=== PATIENT | male | born 1965 | race African-American/Black ===

== ENCOUNTER 2016-07-12 18:56 | Emergency (ER) | payer BC ==
[2016-07-12 15:35] LABS: BASOPHILS 0.4 %; BASOPHILS ABSOLUTE 0.03 10/3/uL (0.0-0.16); ER CBC TAT 0 Hrs 07 Mins; HEMATOCRIT 39.4 % (40.0-51.0); HEMOGLOBIN 13.6 g/dL (13.6-17.8); LYMPHOCYTES 28.9 %; LYMPHOCYTES ABSOLUTE 2.19 10/3/uL (0.67-4.30); MANUAL DIFF NO %; MEAN CORPUS HGB CONC 34.5 g/dL (32.0-36.0); MEAN CORPUSCULAR HEMOGLOB 29.7 pg (26.0-34.0); MEAN PLATELET VOLUME 10.2 fL (9.2-13.0); MONOCYTES 9.6 %; MONOCYTES ABSOLUTE 0.73 10/3/uL (0.21-1.20); NEUTROPHILS 57.1 %; NEUTROPHILS ABSOLUTE 4.32 10/3/uL (2.02-8.40); PLATELET COUNT 229 10/3/uL (150-400); RBC DISTRIBUTION WIDTH 13.3 % (12.0-16.0); RED CELL COUNT 4.58 10/6/uL (4.7-6.1); WHITE BLOOD CELLS 7.6 10/3/uL (4.5-10.5)
[2016-07-12 15:46] LABS: PARTIAL THROMBO TIME 27.3 SEC (22.5-37.2); PROTIME (NOT ORD) 13.1 SEC (12.0-14.5)
[2016-07-12 15:50] LABS: BUN (BLOOD UREA NITROGEN) 7 MG/DL (6-23); CALCIUM, SERUM 9.7 MG/DL (8.5-10.4); CHEST PAIN PROFILE TAT 0 Hrs 22 Mins; CHLORIDE, SERUM 101 MMOL/L (96-112); CO2 (CARBON DIOXIDE) 34 MMOL/L (24-34); CREATININE 0.87 MG/DL (0.70-1.30); GFR AFRICAN AMERICAN 115 ML/MIN (>=60); GFR NON AFRICAN AMERICAN 99 ML/MIN (>=60); GLUCOSE, SERUM 182 MG/DL (60-99); POTASSIUM, SERUM 3.9 MMOL/L (3.5-5.3); SODIUM, SERUM 137 MMOL/L (135-148); TROPONIN I <0.02 NG/ML (<0.05)
[2016-07-12 17:52] LABS: D-DIMER QUANTITATIVE < 0.27 ug/mLFEU (< 0.50)
[~2016-07-12 18:56] MED LIST: AMB10 PO; ASAB PO; ATIVAN2 MG PO; ATV1 PO; CEFT5 PO; FLEX PO; GLUCPH PO; HYDROCHLOROT25 MG PO; KLOR-CON 1010 MEQ PO; LYRICA300 MG PO; LYRICA75 PO; M-END WC OR; MIRALAXPKT PO; NORV5 PO; OXYCONTIN30 MG PO; PERCOCET1 TA4 PO; PRILO PO; ROXICODONE15 MG PO; SINGULAIR1 PO; ZOCOR10 PO; ZYRTEC ALLGY10 MG PO
== END 2016-07-12 19:35 | disposition home or self-care (01) ==
LOC: ER 18:56
PROVIDERS: Emergency Medicine
DX: J40 Bronchitis, not specified as acute or chronic (principal); H10.9 Unspecified conjunctivitis; I10 Essential (primary) hypertension; F41.9 Anxiety disorder, unspecified; E11.9 Type 2 diabetes mellitus without complications; Z79.82 Long term (current) use of aspirin; Z79.899 Other long term (current) drug therapy
CPT/HCPCS: 71020; 80048; 83735; 84484; 85025; 85379; 85610; 85730; 93005; 94640; 99285; A9270-GY

== ENCOUNTER 2016-07-13 23:25 | Emergency (ER) | payer BC ==
[2016-07-13 23:55] LABS: BASOPHILS 0.3 %; BASOPHILS ABSOLUTE 0.03 10/3/uL (0.0-0.16); EOSINOPHILS 1.4 %; EOSINOPHILS ABSOLUTE 0.16 10/3/uL (0.0-0.53); HEMATOCRIT 39.6 % (40.0-51.0); HEMOGLOBIN 13.8 g/dL (13.6-17.8); IMMATURE GRANULOCYTES 0.3 %; IMMATURE GRANULOCYTES ABSOLUTE 0.04 10/3/uL (0.0-0.11); LYMPHOCYTES 19.8 %; LYMPHOCYTES ABSOLUTE 2.35 10/3/uL (0.67-4.30); MEAN CORPUS HGB CONC 34.8 g/dL (32.0-36.0); MEAN CORPUSCULAR VOLUME 86.1 fL (80-100); MONOCYTES 5.7 %; MONOCYTES ABSOLUTE 0.68 10/3/uL (0.21-1.20); NEUTROPHILS 72.5 %; NEUTROPHILS ABSOLUTE 8.59 10/3/uL (2.02-8.40); PLATELET COUNT 228 10/3/uL (150-400); RBC DISTRIBUTION WIDTH 13.4 % (12.0-16.0)
[2016-07-14 00:04] LABS: ER CBC TAT 0 Hrs 15 Mins; MANUAL DIFF NO %; WHITE BLOOD CELLS 11.9 10/3/uL (4.5-10.5)
[2016-07-14 00:36] LABS: A/G RATIO 1.3 (0.7-1.9); ALBUMIN 4.2 G/DL (3.5-5.0); ALKALINE PHOSPHATASE 91 U/L (45-117); BUN (BLOOD UREA NITROGEN) 13 MG/DL (6-23); CALCIUM, SERUM 9.5 MG/DL (8.5-10.4); CHLORIDE, SERUM 102 MMOL/L (96-112); CO2 (CARBON DIOXIDE) 30 MMOL/L (24-34); CREATININE 1.18 MG/DL (0.70-1.30); GFR AFRICAN AMERICAN 82 ML/MIN (>=60); GFR NON AFRICAN AMERICAN 71 ML/MIN (>=60); GLOBULIN 3.2 G/DL (2.5-4.1); GLUCOSE, SERUM 222 MG/DL (60-99); POTASSIUM, SERUM 3.5 MMOL/L (3.5-5.3); SGOT(AST) 11 U/L (5-40); SGPT(ALT) 22 U/L (5-65); SODIUM, SERUM 140 MMOL/L (135-148); TOTAL BILIRUBIN 0.5 MG/DL (0-1.2); TOTAL PROTEIN 7.4 G/DL (6.0-8.5)
[2016-07-14 03:47] LABS: ALLENS TEST Pos; BE (BASE EXCESS) -2.5 MEQ/L (0 +/- 2.5); CARBOXYHEMOGLOBIN 1.2 % (0-3); HEMOBLOGIN CONTENT 14.5 G/DL (14-18); INSTRUMENT SERIAL # 8087; METHEMOGLOBIN 0.3 % (0-3); O2 CONTENT 19.2 VOL% (18-24); OPERATOR ID 17589; PCO2 (CO2 TENSION) 37 MMHG (35-45); PO2 (O2 TENSION) 83 MMHG (79-93); SAMPLE Arterial; pH 7.39 (7.37-7.43)
== END 2016-07-14 05:30 | disposition home or self-care (01) ==
LOC: ER 23:25
PROVIDERS: Emergency Medicine; Nurse Practitioner
DX: J44.1 Chronic obstructive pulmonary disease with (acute) exacerbation (principal); E11.65 Type 2 diabetes mellitus with hyperglycemia; J45.909 Unspecified asthma, uncomplicated; I10 Essential (primary) hypertension; E78.5 Hyperlipidemia, unspecified; F41.9 Anxiety disorder, unspecified; G89.29 Other chronic pain; Z79.82 Long term (current) use of aspirin; Z90.49 Acquired absence of other specified parts of digestive tract; Z98.890 Other specified postprocedural states
CPT/HCPCS: 36600; 71020; 80053; 82805; 84484; 85025; 85379; 87040; 93005; 94640; 96374; 99285; J2930

== ENCOUNTER 2016-07-21 02:25 | Observation (INO) | payer BC ==
--- NOTE | ~2016-07-21 | DS ---
Discharge Summary [id number] [place]. [address] NAME: JAMES HERRERA : 61 STATUS : DIS Hannah PAT#: [id number] AGE: 50 ADM/REG DATE : 07/21/16 MR#: [id number] REPORT SERV DATE: 07/26/16 DICTATED BY: AGUSTINA HATFIELD DATE: 07/22/16 REPORT STATUS : Draft TRANSCRIBED BY: MODL DATE: 07/22/16 ADMISSION DATE: 07/21/2016 DISCHARGE DATE: 07/22/2016 This is a 50-year-old male who is going to be discharged with the final diagnoses of asthma exacerbation, improved; obstructive sleep apnea, uncontrolled diabetes, hypertension, and hypokalemia resolved. DIAGNOSTIC EXAM: Chest x-ray showing shallow inspiration with bibasilar atelectasis. HOSPITAL COURSE: Please refer to the H and P done by Dr. Otoniel Yu dated on 07/21/2016. Briefly, this is a 50-year-old male who comes in for shortness of breath and cough. The patient has a history of asthma and said that it has been under control. He realizes though that whenever springtime comes and there was a lot of pollen he gets this shortness of breath and cough. The patient has been experiencing this problem, and for one week now, he has been going to the emergency room for increasing shortness of breath and dyspnea on exertion. The patient was given prednisone inhalers, but did not get any improvement in his breathing. The patient then went back to the emergency room and was admitted by Dr. Yu. Meanwhile, he admitted that he has not been checking his sugar because he ran out of supplies and he does not know his blood sugar in the past three to four months. The patient was placed on observation by Dr. Yu. We started him on empiric antibiotics and Solu- Medrol, and naturally, his white count and blood sugar went up. However, clinically, he is doing fine, and on ambulation, he is saturating at 94%. The patient will now be discharged with the above diagnoses, and he will follow up with Dr. Nabila Fung in a week's time. The patient will be discharged on the following medications. Norvasc 5 mg a day, aspirin 81 mg a day, vitamin D 1000 units a day, doxycycline 100 mg p.o. twice a day for one week, subcu insulin protocol level 3 with NovoLog, Zyrtec 10 mg once a day, Medrol Dosepak as directed, Metoprolol-XL 50 mg a day, Lyrica 300 mg twice a day, Zocor 10 mg a day, metformin 1000 mg twice a day, hydrochlorothiazide 25 mg a day, potassium 20 mEq a day, Spiriva one puff a day, Roxicodone 20 mg three times a day p.r.n., albuterol inhalers every four hours, Ambien 10 mg at bedtime. The patient is requesting for a Pulmonary consult. We will be arranging an outpatient followup with our [facility], but it might be worthwhile also with the patient would follow up with an outpatient certified flight instructor as well. Of note, we sent for a hemoglobin A1c to check his diabetes. Unfortunately, the ones that I ordered has been canceled for some unknown reason. The patient is clinically better and this could be followed up as an outpatient. We also got inclusion special educator to help him out as well. FREDY/AIDAN Agustina Hatfield M.D. Discharge Summary [address] [address] NAME: JAMES HERRERA : 61 STATUS : DIS Hannah PAT#: [id number] AGE: 50 ADM/REG DATE : 07/21/16 MR#: [id number] REPORT SERV DATE: 07/26/16 DICTATED BY: AGUSTINA HATFIELD DATE: 07/22/16 REPORT STATUS : Draft TRANSCRIBED BY: AIDAN DATE: 07/22/16 / [id number] CC: Gabo Sanford M.D. [facility]
--- NOTE | ~2016-07-21 | HP ---
History And Physical [address] [address] NAME: JAMES HERRERA : 61 STATUS : ADM Hannah PAT#: [id number] AGE: 50 ADM/REG DATE : 07/21/16 MR#: [id number] REPORT SERV DATE: 07/21/16 DICTATED BY: BRIELLE LOBO DATE: 07/21/16 REPORT STATUS : Draft TRANSCRIBED BY: MODL DATE: 07/21/16 DATE OF ADMISSION: 07/21/2016 CHIEF COMPLAINT: A 50-year-old male, presenting with shortness of breath and cough. HISTORY OF PRESENT ILLNESS: The patient's history was obtained through careful interview with the patient, , and sister coupled with [facility]. The patient over the last week has been to the emergency department three times because of increasing shortness of breath characterized by dyspnea on exertion with an increasing cough productive of a greenish sputum. He states that over last week he has been seen in the emergency department, given doses of prednisone and inhalers but without any improvement in his breathing. On the night of admission, he felt he was gasping for breath and could not breathe and so felt he had to come in once again. He describes mid chest discomfort, like tying and tightening a knot inside of his chest, 9/10 severity that can radiate up into the right shoulder. He has had subjective fevers and chills, some nausea, no vomiting, no lightheadedness. He admits to not checking his diabetes and he states "I ran out of supplies." REVIEW OF SYSTEMS: Otherwise, a 14-point review of systems was obtained and was negative. PAST MEDICAL HISTORY: 1. Diabetes. 2. Pain management. 3. COPD. 4. Obstructive sleep apnea, on nightly CPAP. 5. Hypertension. 6. Elevated cholesterol. 7. Anxiety. 8. Negative catheterization of the heart in 05/2013. PAST SURGICAL HISTORY: 1. Bilateral rotator cuff repair. 2. Appendectomy. 3. Inguinal hernia repair. ALLERGIES: NO KNOWN DRUG ALLERGIES. History And Physical [address] [address] NAME: JAMES HERRERA : 61 STATUS : ADM Hannah PAT#: [id number] AGE: 50 ADM/REG DATE : 07/21/16 MR#: [id number] REPORT SERV DATE: 07/21/16 DICTATED BY: BRIELLE LOBO DATE: 07/21/16 REPORT STATUS : Draft TRANSCRIBED BY: AIDAN DATE: 07/21/16 SOCIAL HISTORY: No tobacco abuse. No alcohol abuse. He is . Has no children. 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 FAMILY HISTORY: Brother with kidney failure. A strong family history of heart disease, stroke, and diabetes. CURRENT MEDICATIONS: Include albuterol inhaler, Norvasc 5 mg p.o. daily, aspirin 81 mg p.o. daily, Zyrtec 10 mg p.o. daily, vitamin D, hydrochlorothiazide 25 mg p.o. daily, metformin 1000 mg p.o. b.i.d., metoprolol-XL 50 mg p.o. daily, Roxicodone 20 mg p.o. t.i.d. as needed, potassium 20 mEq p.o. daily, prednisone taper, Lyrica 300 mg p.o. b.i.d., Zocor 10 mg p.o. daily, Spiriva inhaled daily, and Ambien at bedtime. PHYSICAL EXAMINATION: VITAL SIGNS: Temperature 98.8, pulse 118, blood pressure 128/76, respiratory rate 24, O2 saturation 94% on room air. GENERAL: Ill-appearing male, in evidence of mild distress secondary to shortness of breath and cough. HEENT: Pupils equal, round, and reactive to light. No conjunctival pallor. No scleral icterus. Nares are patent. Oropharynx is clear of obstruction. Moist mucous membranes. NECK: Trachea midline. No thyromegaly. LYMPH: No cervical lymphadenopathy. No supraclavicular lymphadenopathy. RESPIRATORY: Inspiratory and expiratory wheezes. No rales. No rhonchi. Labored respiratory effort. CARDIOVASCULAR: Tachycardic, regular rhythm. No murmurs, rubs, or gallops. No extremity edema is appreciated. ABDOMEN: Soft, nontender, nondistended. Normal bowel sounds auscultated throughout. No hepatosplenomegaly. DERMATOLOGICAL: Warm and dry extremities. No pallor. No cyanosis. PSYCHIATRIC: Normal affect. Good mood. Alert and oriented x3. LABORATORY DATA: White blood cell count 12.1, hemoglobin 14, hematocrit 41, and platelets 248. Sodium 143, potassium 3.1, chloride 102, bicarb 33, BUN 10, creatinine 1.09. Glucose 214. Brain natriuretic peptide 6, troponin negative. INR 1.0. STUDIES: 1. Chest x-ray by my own evaluation shows COPD, atelectasis, cardiomegaly. 2. EKG by my own evaluation shows sinus tachycardia. ASSESSMENT AND PLAN: 1. Chronic obstructive pulmonary disease exacerbation. Place on IV Solu-Medrol, DuoNeb nebulizers, doxycycline. 2. Systemic inflammatory response syndrome. Check procalcitonin. Check strep. Check Legionella. 3. Diabetes. Check hemoglobin A1c. Place on sliding scale insulin. Obtain community health educator consult. History And Physical [address] [address] NAME: JAMES HERRERA : 61 STATUS : ADM Hannah PAT#: [id number] AGE: 50 ADM/REG DATE : 07/21/16 MR#: [id number] REPORT SERV DATE: 07/21/16 DICTATED BY: BRIELLE LOBO DATE: 07/21/16 REPORT STATUS : Draft TRANSCRIBED BY: AIDAN DATE: 07/21/16 4. Obstructive sleep apnea. Continue home CPAP. KPL/AIDAN Brielle Lobo M.D. / [id number] CC: Gabo Sanford M.D.
[2016-07-21 03:10] LABS: BASOPHILS 0.2 %; BASOPHILS ABSOLUTE 0.02 10/3/uL (0.0-0.16); EOSINOPHILS 3.6 %; EOSINOPHILS ABSOLUTE 0.43 10/3/uL (0.0-0.53); ER CBC TAT 0 Hrs 05 Mins; HEMATOCRIT 40.6 % (40.0-51.0); HEMOGLOBIN 14.1 g/dL (13.6-17.8); IMMATURE GRANULOCYTES 0.3 %; IMMATURE GRANULOCYTES ABSOLUTE 0.04 10/3/uL (0.0-0.11); LYMPHOCYTES 32.3 %; MEAN CORPUS HGB CONC 34.7 g/dL (32.0-36.0); MEAN CORPUSCULAR HEMOGLOB 29.9 pg (26.0-34.0); MEAN PLATELET VOLUME 10.1 fL (9.2-13.0); MONOCYTES 6.7 %; MONOCYTES ABSOLUTE 0.81 10/3/uL (0.21-1.20); NEUTROPHILS 56.9 %; NEUTROPHILS ABSOLUTE 6.88 10/3/uL (2.02-8.40); PLATELET COUNT 248 10/3/uL (150-400); RBC DISTRIBUTION WIDTH 13.3 % (12.0-16.0); RED CELL COUNT 4.72 10/6/uL (4.7-6.1); WHITE BLOOD CELLS 12.1 10/3/uL (4.5-10.5)
[2016-07-21 03:12] LABS: MANUAL DIFF NO %
[2016-07-21 03:18] LABS: PARTIAL THROMBO TIME 24.3 SEC (22.5-37.2); PROTIME (NOT ORD) 12.8 SEC (12.0-14.5)
[2016-07-21] MEDS ORDERED: NORV5 PO (03:22)
[2016-07-21] MEDS ORDERED: TOPXL50 PO (03:22)
[2016-07-21] MEDS ORDERED: HYDROCHLOROT25 MG PO (03:22)
[2016-07-21] MEDS ORDERED: VITAMIN D31000 UNIT PO (03:23)
[2016-07-21] MEDS ORDERED: ZYRTEC ALLGY10 MG PO (03:24)
[2016-07-21] MEDS ORDERED: KLOR-CON M2020 MEQ PO (03:24)
[2016-07-21] MEDS ORDERED: ASAB PO (03:24)
[2016-07-21] MEDS ORDERED: ZOCOR10 PO (03:26)
[2016-07-21] MEDS ORDERED: SPIRIVA RESPIMAT INH (03:26)
[2016-07-21] MEDS ORDERED: FORTAMET1000 MG PO (03:27)
[2016-07-21] MEDS ORDERED: PRED50B PO (03:28)
[2016-07-21 03:29] LABS: A/G RATIO 1.2 (0.7-1.9); ALBUMIN 4.2 G/DL (3.5-5.0); ALKALINE PHOSPHATASE 94 U/L (45-117); BUN (BLOOD UREA NITROGEN) 10 MG/DL (6-23); CALCIUM, SERUM 9.4 MG/DL (8.5-10.4); CHLORIDE, SERUM 102 MMOL/L (96-112); CO2 (CARBON DIOXIDE) 33 MMOL/L (24-34); CREATININE 1.09 MG/DL (0.70-1.30); GFR AFRICAN AMERICAN 90 ML/MIN (>=60); GFR NON AFRICAN AMERICAN 78 ML/MIN (>=60); GLOBULIN 3.4 G/DL (2.5-4.1); GLUCOSE, SERUM 214 MG/DL (60-99); POTASSIUM, SERUM 3.1 MMOL/L (3.5-5.3); SGOT(AST) 14 U/L (5-40); SGPT(ALT) 23 U/L (5-65); SODIUM, SERUM 143 MMOL/L (135-148); TOTAL BILIRUBIN 0.7 MG/DL (0-1.2); TOTAL PROTEIN 7.6 G/DL (6.0-8.5); TROPONIN I <0.02 NG/ML (<0.05)
[2016-07-21] MEDS ORDERED: OXYCOD PO (03:29)
[2016-07-21] MEDS ORDERED: LYRICA300 MG PO (03:29)
[2016-07-21] MEDS ORDERED: PROAIR HFA INH (03:30)
[2016-07-21] MEDS ORDERED: AMB10 PO (03:31)
[2016-07-21] MEDS ORDERED: [UNRECOGNIZED DRUG - CODE] TOP (03:33)
[2016-07-21 12:50] LABS: PROCALCITONIN <0.05 ng/mL (<0.5)
[2016-07-22 06:20] LABS: BASOPHILS 0.1 %; BASOPHILS ABSOLUTE 0.01 10/3/uL (0.0-0.16); EOSINOPHILS 0.1 %; EOSINOPHILS ABSOLUTE 0.01 10/3/uL (0.0-0.53); HEMATOCRIT 38.7 % (40.0-51.0); HEMOGLOBIN 13.5 g/dL (13.6-17.8); IMMATURE GRANULOCYTES 0.3 %; IMMATURE GRANULOCYTES ABSOLUTE 0.06 10/3/uL (0.0-0.11); LYMPHOCYTES 9.2 %; LYMPHOCYTES ABSOLUTE 1.72 10/3/uL (0.67-4.30); MEAN CORPUS HGB CONC 34.9 g/dL (32.0-36.0); MEAN CORPUSCULAR HEMOGLOB 29.8 pg (26.0-34.0); MEAN CORPUSCULAR VOLUME 85.4 fL (80-100); MEAN PLATELET VOLUME 10.4 fL (9.2-13.0); MONOCYTES 2.8 %; MONOCYTES ABSOLUTE 0.53 10/3/uL (0.21-1.20); NEUTROPHILS 87.5 %; NEUTROPHILS ABSOLUTE 16.35 10/3/uL (2.02-8.40); PLATELET COUNT 265 10/3/uL (150-400); RBC DISTRIBUTION WIDTH 13.7 % (12.0-16.0); RED CELL COUNT 4.53 10/6/uL (4.7-6.1)
[2016-07-22 06:22] LABS: MANUAL DIFF NO %; WHITE BLOOD CELLS 18.7 10/3/uL (4.5-10.5)
[2016-07-22 06:30] LABS: BUN (BLOOD UREA NITROGEN) 13 MG/DL (6-23); CHLORIDE, SERUM 102 MMOL/L (96-112); CREATININE 1.03 MG/DL (0.70-1.30); GFR AFRICAN AMERICAN 96 ML/MIN (>=60); GFR NON AFRICAN AMERICAN 83 ML/MIN (>=60); GLUCOSE, SERUM 234 MG/DL (60-99); POTASSIUM, SERUM 4.1 MMOL/L (3.5-5.3); SODIUM, SERUM 138 MMOL/L (135-148)
[2016-07-22 06:32] LABS: CO2 (CARBON DIOXIDE) 25 MMOL/L (24-34)
[2016-07-22 06:33] LABS: CALCIUM, SERUM 9.4 MG/DL (8.5-10.4)
[2016-07-22] MEDS ORDERED: VIBRATAB100 MG PO (11:33)
[2016-07-22] MEDS ORDERED: MEDROLPAK4 PO (11:36)
== END 2016-07-22 13:23 | disposition home or self-care (01) ==
LOC: ER 02:25 → 2SO 04:48
PROVIDERS: Internal Medicine; Nurse Practitioner
DX: J44.1 Chronic obstructive pulmonary disease with (acute) exacerbation (principal); R65.10 Systemic inflammatory response syndrome (SIRS) of non-infectious origin without acute organ dysfunction; E11.9 Type 2 diabetes mellitus without complications; G47.33 Obstructive sleep apnea (adult) (pediatric); I10 Essential (primary) hypertension; E78.00 Pure hypercholesterolemia, unspecified; F41.9 Anxiety disorder, unspecified; Z90.49 Acquired absence of other specified parts of digestive tract; Z98.890 Other specified postprocedural states; J45.909 Unspecified asthma, uncomplicated; Z99.81 Dependence on supplemental oxygen
CPT/HCPCS: 71010; 80048; 80053; 82962; 83036; 83735; 83880; 84132; 84145; 84484; 85025; 85610; 85730; 87040; 93005; 94640; 96372; 96374; 96375; 96376; 99285; A9270-GY; G0378; J2920; J2930